=== PATIENT | female | born 1990 | race Caucasian/White ===

== ENCOUNTER 2018-12-28 11:39 | Emergency (ER) | payer OTHER ==
[2018-12-28] MEDS ORDERED: METOCLOPRAMIDE HCL INJ/PF 10 MG/2 ML SDV IV ONE (12:26)
[2018-12-28] MEDS ORDERED: DIPHENHYDRAMINE HCL 50 MG/ML VIAL IV ONE (12:26)
[2018-12-28] MEDS ORDERED: NORMAL SALINE 1000 ML 1,000 ML IV ONE (12:26)
--- NOTE | 2018-12-28 12:28 | ER Document Report ---
ED Medical Screen (RME) - General Chief Complaint: Headache Stated Complaint: HEADACHE Time Seen by Provider: 12/28/18 12:19 Primary Care Provider: ALEX DAVIDSON [Primary Care Provider] - Follow up as needed Mode of Arrival: Ambulatory Information source: Patient Notes: Patient presents complaining of global headache that started gradually 3 days ago. Patient is currently 25 weeks G1, P0. Patient denies any nausea vomiting or fever. I have greeted and performed a rapid initial assessment of this patient. A comprehensive ED assessment and evaluation of the patient, analysis of test results and completion of the medical decision making process will be conducted by additional ED providers. TRAVEL OUTSIDE OF THE [place] IN LAST 30 DAYS: No - Related Data Allergies/Adverse Reactions: No Known Allergies Allergy (Verified 12/28/18 12:21) Past Medical History - Immunizations Hx Diphtheria, Pertussis, Tetanus Vaccination: Yes Physical Exam - Vital signs Vitals: Temp Pulse Resp BP Pulse Ox 98.0 F 65 14 119/70 100 12/28/18 11:43 12/28/18 11:43 12/28/18 11:43 12/28/18 11:43 12/28/18 11:43 - Neurological Neuro grossly intact: Yes Cognition: Normal Smiley Coma Scale Eye Opening: Spontaneous [place] Coma Scale Verbal: Oriented [place] Coma Scale Motor: Obeys Commands Cl[place] Coma Scale Total: 15 Course - Vital Signs Vital signs: Temp Pulse Resp BP Pulse Ox 98.0 F 65 14 119/70 100 12/28/18 11:43 12/28/18 11:43 12/28/18 11:43 12/28/18 11:43 12/28/18 11:43 Doctor's Discharge - Discharge Referrals: ALEX DAVIDSON [Primary Care Provider] - Follow up as needed
--- NOTE | 2018-12-28 14:56 | ER Document Report ---
ED Headache - General Chief Complaint: Headache Stated Complaint: HEADACHE Time Seen by Provider: 12/28/18 12:19 Primary Care Provider: [facility] [Provider Group] - Follow up as needed ALEX DAVIDSON [Primary Care Provider] - Follow up as needed Mode of Arrival: Ambulatory Information source: Patient, Relative Notes: Patient is a 48-year-old female who was sent by [facility] for a sustained headache of the past 3 days. Patient is currently 25 weeks 5 days into gestation. She states that she developed a headache 3 days ago and it presents on both temples and in the center of the forehead. She has been nauseated with it slightly been unable to keep any food down and the last time she ate was last night. She has no history of headaches in the past no history of migraines. Patient also denies any other medical problems. She currently is not employed and stay home . This is patient's first . She is denied any nausea vomiting or diarrhea currently in the 25 weeks since conception. TRAVEL OUTSIDE OF THE [place] IN LAST 30 DAYS: No - HPI Patient complains to provider of: Headache, "Migraine" Patient reports: No: Frequent migraines Onset was: Gradual Timing: Better Quality of pain: Achy, Sharp, Throbbing Pain Level: 3 Preceding symptoms: denies: Visual disturbance Associated symptoms: None Exacerbated by: Noise, Movement Similar symptoms previously: Yes Recently seen / treated by doctor: Yes - Related Data Allergies/Adverse Reactions: No Known Allergies Allergy (Verified 12/28/18 12:21) Past Medical History - General Information source: Patient - Social History Smoking Status: Never Smoker Chew tobacco use (# tins/day): No Frequency of alcohol use: None Drug Abuse: None Lives with: Family Family History: Reviewed & Not Pertinent Patient has suicidal ideation: No Patient has homicidal ideation: No Renal/ Medical History: Denies: Hx Peritoneal Dialysis - Immunizations Hx Diphtheria, Pertussis, Tetanus Vaccination: Yes Review of Systems - Review of Systems Constitutional: No symptoms reported EENT: No symptoms reported Cardiovascular: No symptoms reported Respiratory: No symptoms reported Gastrointestinal: No symptoms reported Genitourinary: No symptoms reported Female Genitourinary: No symptoms reported Musculoskeletal: No symptoms reported Skin: No symptoms reported Hematologic/Lymphatic: No symptoms reported Neurological/Psychological: No symptoms reported Physical Exam - Vital signs Vitals: Temp Pulse Resp BP Pulse Ox 98.0 F 65 14 119/70 100 12/28/18 11:43 12/28/18 11:43 12/28/18 11:43 12/28/18 11:43 12/28/18 11:43 Interpretation: Normal - Notes Notes: PHYSICAL EXAMINATION: GENERAL: Well-appearing, well-nourished and in no acute distress. HEAD: Atraumatic, normocephalic. EYES: Pupils equal round and reactive to light, extraocular movements intact, conjunctiva are normal. ENT: Nares patent, oropharynx clear without exudates. Moist mucous membranes. NECK: Normal range of motion, supple without lymphadenopathy LUNGS: Breath sounds clear to auscultation bilaterally and equal. No wheezes rales or rhonchi. HEART: Regular rate and rhythm without murmurs ABDOMEN: Examination patient's abdomen shows it to be a abdomen. Bowel sounds are heard in all 4 quads and there is no tenderness to palpation Female : deferred Musculoskeletal: Normal range of motion, no pitting or edema. No cyanosis. NEUROLOGICAL: Normal speech, normal gait. Normal sensory, motor exams PSYCH: Normal mood, normal affect. SKIN: Warm, Dry, normal turgor, no rashes or lesions noted. Course - Re-evaluation Re-evalutation: 12/28/18 15:12 Patient state emergency room was apparently helpful. She received relief of her headache with the fluids the Reglan and that the Benadryl. I am sending her home with Reglan and Benadryl. Patient is agreement with this plan and she will follow-up with [facility] the first of the week. She also knows to return to ER she has any concerns or problems. 12/28/18 15:19 Heart tones is reported to me by my nurse state that is 128 and 143. - Vital Signs Vital signs: Temp Pulse Resp BP Pulse Ox 97.8 F 86 18 110/71 100 12/28/18 15:11 12/28/18 15:11 12/28/18 15:11 12/28/18 15:11 12/28/18 15:11 Discharge - Discharge Clinical Impression: Headache in Qualifiers: Trimester: second trimester Qualified Code(s): O26.892 - Other specified related conditions, second trimester Condition: Stable Disposition: HOME, SELF-CARE Instructions: Antinausea Medication ([facility]), Use of Diphenhydramine, Headache ([facility]) Additional Instructions: Home today and rest. Medication as prescribed. Push the fluids as much as possible. As of indicated to you can take Benadryl which is safe in can take 25 to 50 mg every 6 hours although we will make you drowsy so do not take it and drive. The other medication were given here which seems to help subside your headache was Reglan I will write you feel those tablets as well this is help with nausea Prescriptions: Metoclopramide HCl [Reglan 10 mg Tablet] 1 - 2 tab PO ASDIR PRN #15 tablet PRN Reason: Referrals: LOCALMD,NO [Primary Care Provider] - Follow up as needed [facility] [Provider Group] - Follow up as needed
[2018-12-28 15:13] VITALS: BP 110/71
== END 2018-12-28 15:22 | disposition home or self-care (01) ==
LOC: ER 11:39
DX: O26.892 Other specified pregnancy related conditions, second trimester (principal); R51 Headache; Z3A.25 25 weeks gestation of pregnancy
CPT/HCPCS: 99283; 96361; 96374; J1200; J2765; J7030